=== PATIENT | male | born 2000 | race Hispanic/Latino ===

== ENCOUNTER 2025-03-13 13:29 | Emergency (ER) | payer OTHER ==
[~2025-03-13] VITALS: Ht 188 cm; Wt 150.0 kg
[2025-03-13] MEDS ORDERED: ISOVUE-370 76% 100 ML VIAL As Ordered ONE (14:23)
[2025-03-13] MEDS: ONDANSETRON 4MG 2ML VIAL IV ONE (14:45)
[2025-03-13] MEDS ORDERED: MORPHINE 4 MG/ML 1 ML VIAL IV PRN (14:45)
[2025-03-13] MEDS: ACETAMINOPHEN 500 MG TAB PO ONE (15:02)
[2025-03-13] MEDS ORDERED: HOME MED LIST COMPLETE! XX SCH (16:15)
[2025-03-13 17:36] VITALS: O2SAT 100
[2025-03-13 17:50] VITALS: BP 154/62; TEMP 97.7; O2SAT 95
== END 2025-03-13 17:50 | disposition home or self-care (01) ==
LOC: M ED 13:29
DX: S40.011A Contusion of right shoulder, initial encounter (principal); S50.01XA Contusion of right elbow, initial encounter; V86.65XA Passenger of 3- or 4- wheeled all-terrain vehicle (ATV) injured in nontraffic accident, initial encounter; Y92.9 Unspecified place or not applicable; Y93.89 Activity, other specified; Y99.9 Unspecified external cause status
CPT/HCPCS: 70450; 71260; 72125; 73030; 73080; 74177; 99284; Q9967